=== PATIENT | male | born 1985 | race Two or more races ===

== ENCOUNTER 2016-11-19 07:39 | Inpatient (IN) | payer BC, MEDICAID, OTHER ==
[~2016-11-19] VITALS: Ht 177.8 cm; Wt 153.9 kg
[2016-11-19] MEDS ORDERED: SODIUM CHLORIDE 0.9% 1,000 ML IV ONE ×2 (09:27→09:48)
[2016-11-19] MEDS ORDERED: NALBUPHINE HCL 10 MG/1ml INJECTION IV ONE (10:00)
[2016-11-19] MEDS ORDERED: ONDANSETRON HCL 4 MG/2 ML VIAL IV ONE (10:00)
[2016-11-19 10:19] LABS: Basophils # (auto) 0 uL; Basophils % (auto) 0.4 % (0.0-2.0); Eosinophils # (auto) 0 uL; Eosinophils % (auto) 0.1 % (0.0-7.0); Hematocrit 45.8 % (41.0-53.0); Hemoglobin 15.7 g/dL (13.5-17.5); Lymphocytes # (auto) 0.6 uL; Lymphocytes % (auto) 5.6 % (10.0-50.0); Mean Corpuscular Hemoglobin 27.2 pg (28.0-32.0); Mean Corpuscular Hgb Conc. 34.4 g/dL (32.0-36.0); Mean Corpuscular Volume 79.2 fL (80.0-100.0); Mean Platelet Volume 9.5 fL (7.4-10.4); Monocytes # (auto) 0.9 uL; Monocytes % (auto) 7.9 % (0.0-12.0); Neutrophils # (auto) 9.5 uL; Platelet Count (auto) 351 10^3/uL (140-450); Red Cell Distribution Width 13.5 % (11.6-16.0); White Blood Cell 11.1 10^3/uL (4.4-10.8)
[2016-11-19 10:41] LABS: Albumin 3.5 g/dL (3.4-5.0); BUN/Creatinine Ratio 17.3; Bilirubin, Total 0.7 mg/dL (0.2-1.0); Calcium 8.4 mg/dL (8.5-10.1); Potassium 4.2 mmol/L (3.5-5.1); Total Protein 8.2 g/dL (6.4-8.2)
[2016-11-19] MEDS ORDERED: cefTRIAXone 1GM/50ML D5W 50 ML IV ONE (12:15)
[2016-11-19] MEDS ORDERED: InsuLIN REG 1unit/0.01ml Soln (100units/ml) IV ONE (12:15)
[2016-11-19] MEDS ORDERED: AZITHROMYCIN 500MG/D5W 250ML 250 ML IV ONE (12:15)
[2016-11-19] MEDS ORDERED: HYDROcodone-ACET 5/325MG TAB PO PRN (13:00)
[2016-11-19] MEDS ORDERED: TEMAZEPAM 15 MG CAP PO PRN (13:00)
[2016-11-19] MEDS ORDERED: NITROGLYCERIN 0.4 MG SL TAB SL PRN (13:00)
[2016-11-19] MEDS ORDERED: DEXTROSE (50%) 50ML SYRG IV PRN (13:00)
[2016-11-19] MEDS ORDERED: MORPHINE SULF INJ 2 MG/ML SYRINGE 1ML IV PRN (13:00)
[2016-11-19] MEDS: SODIUM CHLORIDE 0.9% 1,000 ML IV SCH (13:10)
[2016-11-19] MEDS ORDERED: FAMOTIDINE 20 MG TAB PO SCH (13:15)
[2016-11-19 13:28] LABS: REFLEX LACTIC ACID YES OR NO YES
[2016-11-19] MEDS: ONDANSETRON HCL 4 MG/2 ML VIAL IV PRN (13:48)
[2016-11-19 15:00] VITALS: BP 146/78
[2016-11-19 15:15] LABS: Urine RBC None Seen /hpf (0 - 3)
[2016-11-19 15:33] LABS: Urine Bilirubin Negative (Negative); Urine Blood Negative /uL (Negative); Urine Color Yellow (Yellow); Urine Ketone TRACE (Negative); Urine Mucus FEW (None Seen); Urine Nitrite Negative (Negative); Urine Squamous Epithelial Cell FEW /hpf (<5); Urine Urobilinogen Normal (Negative)
[2016-11-19 15:39] LABS: Lactic Acid w/Reflex 3.1 mmol/L (0.4-2.0)
[2016-11-19 15:45] LABS: REFLEX LACTIC ACID YES OR NO NO
[2016-11-19] MEDS ORDERED: PANTOPRAZOLE 40 MG TAB PO ONE (15:45)
[2016-11-19 15:47] LABS: Urine Glucose 2+ mg/dL (Normal)
[2016-11-19 16:43] VITALS: BP 119/64
[2016-11-19] MEDS: InsuLIN REG 1unit/0.01ml Soln (100units/ml) SC SCH ×2 (17:00→22:00)
[2016-11-19] MEDS: ACCU-CHEK COMFORT CURVE STRIP VI SCH ×2 (17:00→22:20)
[2016-11-19] MEDS: MORPHINE SULF INJ 2 MG/ML SYRINGE 1ML IV PRN (17:56)
[2016-11-19 18:29] LABS: REFLEX LACTIC ACID YES OR NO NO
[2016-11-19] MEDS: ALBUTEROL SULF 2.5 MG/0.5ML(0.5%) NEB SOLN NEB SCH (20:11)
[2016-11-19] MEDS: IPRATROPIUM BROM 0.5 MG/2.5ML INH SOL NEB SCH (20:11)
[2016-11-19 21:07] VITALS: BP 119/64
[2016-11-19 22:00] VITALS: BP 125/78
[2016-11-19] MEDS: PANTOPRAZOLE 40 MG TAB PO SCH (22:20)
[2016-11-20] VITALS (7 sets, daily range): BP systolic 93–153; BP diastolic 53–81
[2016-11-20] MEDS: ALBUTEROL SULF 2.5 MG/0.5ML(0.5%) NEB SOLN NEB SCH ×4 (00:51→20:32)
[2016-11-20] MEDS: IPRATROPIUM BROM 0.5 MG/2.5ML INH SOL NEB SCH ×4 (00:51→20:33)
[2016-11-20] MEDS ORDERED: LOPERAMIDE HCL 2 MG CAP PO ONE (02:45)
[2016-11-20] MEDS: SODIUM CHLORIDE 0.9% 1,000 ML IV SCH ×4 (05:31→22:11)
[2016-11-20] MEDS: ACCU-CHEK COMFORT CURVE STRIP VI SCH ×4 (06:31→22:24)
[2016-11-20] MEDS: InsuLIN REG 1unit/0.01ml Soln (100units/ml) SC SCH ×4 (07:00→22:25)
[2016-11-20 07:30] LABS: Basophils # (auto) 0 uL; Eosinophils # (auto) 0 uL; Lymphocytes # (auto) 1.1 uL; Lymphocytes % (auto) 7.7 % (10.0-50.0); Mean Corpuscular Hemoglobin 27.2 pg (28.0-32.0); Mean Corpuscular Hgb Conc. 34.2 g/dL (32.0-36.0); Mean Corpuscular Volume 79.5 fL (80.0-100.0); Monocytes # (auto) 1.3 uL; Monocytes % (auto) 9.6 % (0.0-12.0); Neutrophils # (auto) 11.5 uL; Neutrophils % (auto) 82.7 % (37.0-80.0); Platelet Count (auto) 281 10^3/uL (140-450); Red Cell Distribution Width 13.1 % (11.6-16.0); White Blood Cell 13.9 10^3/uL (4.4-10.8)
[2016-11-20 07:51] LABS: Albumin 3.3 g/dL (3.4-5.0); BUN/Creatinine Ratio 14.4; Bilirubin, Total 0.5 mg/dL (0.2-1.0); Calcium 7.8 mg/dL (8.5-10.1); Potassium 3.7 mmol/L (3.5-5.1); Total Protein 7.8 g/dL (6.4-8.2)
[2016-11-20 08:40] LABS: INR 1.1 (0.9-1.15); Partial Thromboplastin Time 30.3 sec (22.64-33.71); Prothrombin Time 11.9 sec (9.37-12.3)
[2016-11-20] MEDS: cefTRIAXone 1GM/50ML D5W 50 ML IV SCH (09:22)
[2016-11-20] MEDS: PANTOPRAZOLE 40 MG TAB PO SCH ×2 (10:00→22:24)
[2016-11-20] MEDS: MULTIPLE VITAMIN TAB PO SCH (10:00)
[2016-11-20] MEDS: AZITHROMYCIN 500MG/D5W 250ML 250 ML IV SCH (10:47)
[2016-11-20] MEDS: ONDANSETRON HCL 4 MG/2 ML VIAL IV PRN ×2 (10:48→15:56)
[2016-11-20] MEDS: MORPHINE SULF INJ 2 MG/ML SYRINGE 1ML IV PRN ×2 (11:01→17:50)
[2016-11-20] MEDS: ACETAMINOPHEN 325 MG TAB PO PRN (11:06)
[2016-11-20] MEDS ORDERED: LIDOCAINE VISCOUS 2% 15ML UD ONE (12:00)
[2016-11-20] MEDS ORDERED: FLUMAZENIL 0.1 MG/ML INJ 10ML MDV IV ONE (12:00)
[2016-11-20] MEDS ORDERED: NALOXONE HCL 0.4 MG/ML VIAL ONE (12:00)
[2016-11-20] MEDS ORDERED: MIDAZOLAM HCL 5 MG/ML-1ML VIAL ONE (12:00)
[2016-11-20] MEDS ORDERED: diphenhdrAMINE HCL 50 MG/1 ML VL ONE (12:01)
[2016-11-20] MEDS ORDERED: fentaNYL CITRATE 100 MCG/2 ML VL ONE (12:01)
[2016-11-20] MEDS ORDERED: SODIUM CHLORIDE LOCK 10 ML ONE (12:02)
[2016-11-20] MEDS ORDERED: LIDOCAINE VISCOUS 2% 15ML UD MT ONE (12:15)
[2016-11-20] MEDS ORDERED: MIDAZOLAM HCL 5 MG/ML-1ML VIAL IV ONE ×2 (12:15→12:18)
[2016-11-20] MEDS ORDERED: fentaNYL CITRATE 100 MCG/2 ML VL IV ONE ×2 (12:15→12:18)
[2016-11-20] MEDS: LOPERAMIDE HCL 2 MG CAP PO PRN (15:56)
[2016-11-20] MEDS: metroNIDAZOLE 500MG/100ML 100 ML IV SCH ×2 (15:56→22:24)
[2016-11-21] MEDS: IPRATROPIUM BROM 0.5 MG/2.5ML INH SOL NEB SCH ×3 (01:19→11:29)
[2016-11-21] MEDS: ALBUTEROL SULF 2.5 MG/0.5ML(0.5%) NEB SOLN NEB SCH ×3 (01:19→11:29)
[2016-11-21] MEDS: ONDANSETRON HCL 4 MG/2 ML VIAL IV PRN (01:46)
[2016-11-21] MEDS: ACETAMINOPHEN 325 MG TAB PO PRN ×2 (01:46→13:51)
[2016-11-21] MEDS: LOPERAMIDE HCL 2 MG CAP PO PRN (01:47)
[2016-11-21] MEDS: SODIUM CHLORIDE 0.9% 1,000 ML IV SCH (05:03)
[2016-11-21] MEDS: metroNIDAZOLE 500MG/100ML 100 ML IV SCH ×2 (05:05→13:51)
[2016-11-21 05:30] VITALS: BP 101/55
[2016-11-21 05:46] LABS: Basophils # (auto) 0 uL; Basophils % (auto) 0.4 % (0.0-2.0); Eosinophils # (auto) 0 uL; Eosinophils % (auto) 0.4 % (0.0-7.0); Hematocrit 39.6 % (41.0-53.0); Hemoglobin 13.9 g/dL (13.5-17.5); Lymphocytes # (auto) 1.6 uL; Lymphocytes % (auto) 20.3 % (10.0-50.0); Mean Corpuscular Hemoglobin 28.3 pg (28.0-32.0); Mean Corpuscular Hgb Conc. 35.2 g/dL (32.0-36.0); Mean Corpuscular Volume 80.3 fL (80.0-100.0); Mean Platelet Volume 9.6 fL (7.4-10.4); Monocytes # (auto) 1.2 uL; Monocytes % (auto) 15.4 % (0.0-12.0); Neutrophils # (auto) 4.9 uL; Neutrophils % (auto) 63.5 % (37.0-80.0); Platelet Count (auto) 236 10^3/uL (140-450); Red Cell Distribution Width 13.4 % (11.6-16.0); White Blood Cell 7.7 10^3/uL (4.4-10.8)
[2016-11-21 06:02] LABS: Albumin 2.8 g/dL (3.4-5.0); Calcium 7.7 mg/dL (8.5-10.1); Potassium 3.5 mmol/L (3.5-5.1)
[2016-11-21] MEDS: ACCU-CHEK COMFORT CURVE STRIP VI SCH ×2 (06:05→11:30)
[2016-11-21 06:06] LABS: BUN/Creatinine Ratio 15.2; Bilirubin, Total 0.3 mg/dL (0.2-1.0); Total Protein 6.9 g/dL (6.4-8.2)
[2016-11-21] MEDS: InsuLIN REG 1unit/0.01ml Soln (100units/ml) SC SCH ×2 (06:09→11:30)
[2016-11-21] MEDS: MORPHINE SULF INJ 2 MG/ML SYRINGE 1ML IV PRN (06:17)
[2016-11-21 08:00] VITALS: BP 141/75
[2016-11-21 09:00] VITALS: BP 141/72
[2016-11-21] MEDS: cefTRIAXone 1GM/50ML D5W 50 ML IV SCH (09:27)
[2016-11-21] MEDS: PANTOPRAZOLE 40 MG TAB PO SCH (10:00)
[2016-11-21] MEDS: MULTIPLE VITAMIN TAB PO SCH (10:00)
[2016-11-21] MEDS: AZITHROMYCIN 500MG/D5W 250ML 250 ML IV SCH (10:23)
[2016-11-21 13:00] VITALS: BP 105/49
[2016-11-21] MEDS ORDERED: PANT40TA2 PO ×2 (16:04→16:05)
[2016-11-21] MEDS ORDERED: LEVO500T3 PO (16:06)
[2016-11-21 16:09] VITALS: BP 128/64
[2016-11-21 16:45] VITALS: BP 113/53
== END 2016-11-21 17:00 | disposition home or self-care (01) | DRG 871 ==
LOC: ER 07:39 → TELE 07:40 → TELE-E-ADS 13:52 → TELE-WESTW 15:27
PROVIDERS: ADMIT Internal Medicine; ATTEND Internal Medicine
PROC: 0DB68ZX Excision of Stomach, Via Natural or Artificial Opening Endoscopic, Diagnostic (ICD-10-PCS; principal; 2016-11-20 12:10)
DX: A41.9 Sepsis, unspecified organism (principal); J18.9 Pneumonia, unspecified organism; E87.1 Hypo-osmolality and hyponatremia; J45.901 Unspecified asthma with (acute) exacerbation; E11.65 Type 2 diabetes mellitus with hyperglycemia; E83.51 Hypocalcemia; E86.0 Dehydration; K52.9 Noninfective gastroenteritis and colitis, unspecified; Z83.3 Family history of diabetes mellitus; E86.1 Hypovolemia; K20.9 Esophagitis, unspecified; K29.70 Gastritis, unspecified, without bleeding; K44.9 Diaphragmatic hernia without obstruction or gangrene
CPT/HCPCS: 36415; 43239; 71010; 74176; 76705; 78226; 80053; 81001; 82150; 82962; 83036; 83540; 83605; 83690; 85025; 85610; 85730; 87040; 87045; 87086; 87493; 87899; 94640; 96361; 96365; 96368; 96375; J0696; J1815; J2250; J2405; J3490

== ENCOUNTER 2017-01-30 22:53 | Emergency (ER) | payer BC, OTHER ==
[~2017-01-30] VITALS: Ht 180.3 cm; Wt 155.1 kg
[~2017-01-30 22:53] MED LIST: LEVO500T21 PO; PANT40TA2 PO
[2017-01-31] VITALS: BP 146/92
[2017-01-31] MEDS ORDERED: IBUPROFEN 600 MG TAB PO ONE ×2 (00:33→00:45)
== END 2017-01-31 00:48 | disposition home or self-care (01) ==
LOC: ER 22:53
DX: S86.912A Strain of unspecified muscle(s) and tendon(s) at lower leg level, left leg, initial encounter (principal); J45.909 Unspecified asthma, uncomplicated; E11.9 Type 2 diabetes mellitus without complications; W18.39XA Other fall on same level, initial encounter; Y93.89 Activity, other specified; Y92.89 Other specified places as the place of occurrence of the external cause; Y99.0 Civilian activity done for income or pay
CPT/HCPCS: 73562

== ENCOUNTER 2020-07-23 23:06 | Emergency (ER) | payer OTHER ==
[~2020-07-23] VITALS: Ht 177.8 cm; Wt 140.6 kg
[2020-07-24] MEDS ORDERED: ACETAMINOPHEN 325 MG TAB PO ONE (00:15)
[2020-07-24 01:16] LABS: Basophils # (auto) 0 10 ^3/uL (0-0.2); Basophils % (auto) 0.2 % (0.0-2.0); Lymphocytes # (auto) 1.2 10 ^3/uL (0.4-5.4); Nucleated Red Blood Cells % 0.2 %
[2020-07-24 01:18] LABS: Eosinophils # (auto) 0 10 ^3/uL (0-0.8); Eosinophils % (auto) 0.7 % (0.0-7.0); Hematocrit 45.1 % (41.0-53.0); Hemoglobin 15.5 g/dL (13.5-17.5); Lymphocytes % (auto) 16.3 % (10.0-50.0); Mean Corpuscular Hemoglobin 26.7 pg (28.0-32.0); Mean Corpuscular Hgb Conc. 34.4 g/dL (32.0-36.0); Mean Corpuscular Volume 77.8 fL (80.0-100.0); Monocytes # (auto) 0.6 10 ^3/uL (0-1.3); Monocytes % (auto) 8.9 % (0.0-12.0); Neutrophils # (auto) 5.3 10 ^3/uL (1.6-8.6); Neutrophils % (auto) 73.9 % (37.0-80.0); Platelet Count (auto) 265 10^3/uL (140-450); Red Cell Distribution Width 14.1 % (11.8-14.3); White Blood Cell 7.2 10^3/uL (4.4-10.8)
[2020-07-24 01:32] LABS: INR 0.92 (0.9-1.15); Partial Thromboplastin Time 25.9 sec (23.0-31.2)
[2020-07-24 01:36] LABS: Albumin 3.6 g/dL (3.4-5.0); Calcium 8.9 mg/dL (8.5-10.1); Potassium 4.2 mmol/L (3.5-5.1)
[2020-07-24 01:43] LABS: BUN/Creatinine Ratio 18.6; Bilirubin, Total 0.3 mg/dL (0.2-1.0); Total Protein 7.6 g/dL (6.4-8.2)
[2020-07-24] MEDS ORDERED: DOXYCYCLINE 100MG/250ML 250 ML IV ONE (03:45)
[2020-07-24 06:04] LABS: Urine Bacteria FEW /hpf (None Seen); Urine Blood Negative /uL (Negative); Urine Specific Gravity 1.039 (1.001-1.035); Urine WBC 9 /hpf (0 - 3)
[2020-07-24 06:40] VITALS: BP 143/78
== END 2020-07-24 06:44 | disposition home or self-care (01) ==
LOC: ER 23:06 → EDBD 23:06 → ER 07-24 06:44
DX: U07.1 COVID-19 (principal); E11.65 Type 2 diabetes mellitus with hyperglycemia; J45.909 Unspecified asthma, uncomplicated; Z79.899 Other long term (current) drug therapy
CPT/HCPCS: 36415; 71045; 80053; 81001; 82728; 83880; 84484; 85025; 85379; 85610; 85730; 87426; 96365; 96366; 99285; J3490